=== PATIENT | female | born 1955 | race Caucasian/White ===

== ENCOUNTER 2023-03-08 20:08 | Emergency (ER) | payer MEDICARE, SELFPAY ==
[2023-03-08 20:19] VITALS: BP 161/97; PULSE 118; RESP 16; TEMP 36.6; O2SAT 97
--- NOTE | 2023-03-08 22:03 | W.ED.ALLEREA ---
HPI - Allergic Reaction General: Chief complaint: Allergic Reaction Stated complaint: allergic reaction Time Seen by Provider: 03/08/23 21:23 History of Present Illness: HPI narrative: 67-year-old female presented emergency room with acute rash and itching to both inner thighs within the past few hours. Patient further reviews that she is currently taking 2 antibiotics Cipro and Flagyl for diverticulitis. She denies any shortness of breath, abnormal throat sensation, chest pain, coughing up blood or vomiting blood. No known sick contacts or recent foreign travel. Review of Systems General: Reports: 10 or more systems reviewed and unremarkable except in HPI and below Skin/Breast: Reports: rash, pruritus, erythema, skin tenderness and skin swelling; Denies: lesions, dry skin or striae Physical Exam HENMT: COMMON NORMALS: normocephalic, Normal external nose present, Normal nasal mucous membranes and turbinates present, moist oral mucous membranes, oropharynx normal and dentition normal HEAD & SCALP: normocephalic NOSE: Normal external nose present and Normal nasal mucous membranes and turbinates present Eye: COMMON NORMALS: Equal, round and reactive pupils present, EOMs intact bilaterally, conjunctivae normal, no scleral icterus, no papilledema, normal visual persaud by confrontation and fundi normal bilaterally CONJUNCTIVA: Yes conjunctivae normal PUPIL: Yes Equal, round and reactive pupils present DIRECT OPHTHALMOSCOPY: Yes no papilledema and Yes fundi normal bilaterally Chest: COMMONS NORMALS: normal inspection of the chest, normal palpation of entire chest wall, normal inspection of the breasts and normal palpation of the breasts Breast/axilla inspection: Yes normal inspection of the breasts BREAST/AXILLA PALPATION: Yes normal palpation of the breasts Resp: COMMON NORMALS: normal respiratory effort Skin: NARRATIVE SKIN EXAM: Bilateral inner thigh with large hives. No signs of acute infection no drainage or bleeding. LESIONS: lesion noted Course Vital Signs: Vital signs: Vital Signs Temperature 97.8 F 03/08/23 20:19 Pulse Rate 118 H 03/08/23 20:19 Respiratory Rate 16 03/08/23 20:19 Blood Pressure 161/97 03/08/23 20:19 Pulse Oximetry 97 03/08/23 20:19 Oxygen Delivery Me thod Room Air 03/08/23 20:19 MDM - Allergic Reaction Medical Decision Making Patient was monitored here for few hours after giving IV steroid, Benadryl and Pepcid. Symptoms did improve slightly postmedication. I reviewed her current medication list. Differential Diagnosis Likely anaphylaxis, allergic reaction, angioedema, contact dermatitis, adverse reaction to drug, viral enanthem and urticaria Medical Records I reviewed the patient's medical records. Discharge Plan Discharge Patient Disposition: Home Clinical Impression: Allergic reaction, Urticaria, Adverse reaction to drug Condition: Stable Prescriptions: New Medrol (Aamir) 4 mg tablets,dose pack 4 mg PO DAILY Qty: 21 0RF Discharge Orders: Discharge ED (Routine); Ordered 03/08/23 Ordered By: Michelle Ling Referrals: Jayson Charlton DO [Primary Care Provider] - Discharge Diet: Advance as tolerated Discharge Activity: Resume usual activity Patient Instructions: Opioid Safety, Pain Management Activity Restrictions/Additional Instructions: Stop all current antibiotics. Coding Level of Care Code ED G[employer] Machine for Carley Rey
[2023-03-08] MEDS: dexamethasone 10 mg/mL INJ IVP (22:44)
[2023-03-08] MEDS: famotidine 20 mg/2 mL INJ IVP (22:47)
[2023-03-08] MEDS: diphenhydrAMINE 50 mg/mL SDV 1mL 25 MG IVP (22:50)
[2023-03-08 22:54] VITALS: BP 168/98; PULSE 69; O2SAT 97
[2023-03-08 23:21] VITALS: BP 179/80; PULSE 67; RESP 18; O2SAT 97
== END 2023-03-08 23:25 | disposition home or self-care (01) ==
PROVIDERS: Emergency Provider Family Medicine; PCP Family Medicine
DX: L50.0 Allergic urticaria (principal); T36.95XA Adverse effect of unspecified systemic antibiotic, initial encounter
CPT/HCPCS: 96374; 96375; 99284; J1100; J1200; J3490